=== PATIENT | female | born 1970 | race Caucasian/White ===

== ENCOUNTER → 2017-04-08 | Outpatient (CLI) | payer OTHER ==
[~2017-04-08] MED LIST: ALPRAZOLAM PO; Z.0.BENTYL20 MG PO; Z.0.CIPROFLOXACIN500 PO
--- NOTE | 2017-04-08 15:32 | Diagnostic Imaging Report ---
PROCEDURE: Frontal and lateral views of the chest. COMPARISON: None. INDICATIONS: HISTORY OF CANCER FINDINGS: Lines/tubes: None. Lungs: The lungs are well inflated. Mild bilateral bronchial cuffing. There is no evidence of pneumonia or pulmonary edema. Pleura: There is no pleural effusion or pneumothorax. Heart and mediastinum: The heart and the mediastinum are normal. Bones: No acute bony abnormality. Right upper quadrant cholecystectomy clips. IMPRESSION: No acute cardiopulmonary disease. Dictated by: Abner Kaufman M.D. on 04/08/2017 at 15:40 Electronically approved by: Abner Kaufman M.D. on 04/08/2017 at 15:40
--- NOTE | 2017-04-08 16:07 | Diagnostic Imaging Report ---
PROCEDURE:US RETROPERITONEAL ( KIDNEY ). COMPARISON:Renal ultrasound 04/09/2016. INDICATIONS:Malignant Neoplasm Of Kidney TECHNIQUE: Yarbrough-scale and color sonographic images of the bilateral kidneys and bladder where obtained in transverse and longitudinal planes. FINDINGS: RIGHT KIDNEY: Right nephrectomy. LEFT KIDNEY: 13.2 x 5.0 x 6.2 cm, cortex 2.0 cm Cysts: None Solid masses: None Stones: None Hydronephrosis: None Echogenicity: Normal Bladder: Partially decompressed. CONCLUSION: 1. Right nephrectomy. 2. Normal left kidney. Dictated by: Abner Kaufman M.D. on 04/08/2017 at 16:15 Electronically approved by: Abner Kaufman M.D. on 04/08/2017 at 16:15
== END ==
LOC: US 14:51
PROVIDERS: ATTEND Urology
DX: C64.9 Malignant neoplasm of unspecified kidney, except renal pelvis (principal)
CPT/HCPCS: 71020; 76770

== ENCOUNTER → 2017-04-28 | Outpatient (CLI) | payer OTHER | LOC: MAMMO 14:54 | PROVIDERS: ATTEND Internal Medicine | DX: Z12.31 Encounter for screening mammogram for malignant neoplasm of breast (principal) | CPT/HCPCS: G0202 ==

== ENCOUNTER → 2017-11-27 | Outpatient (CLI) | payer OTHER ==
--- NOTE | 2017-11-27 17:55 | Diagnostic Imaging Report ---
EXAM: Renal Ultrasound INDICATION: \S\MALIGNANT OF UNSPEC'D KIDNEY COMPARISON: Renal ultrasound 04/08/[address] abdomen and pelvis 02/24/2014 TECHNIQUE: Transverse and longitudinal images of the kidneys and bladder were obtained. FINDINGS: Right Kidney: Surgically absent. Left Kidney: Length: 13.7 cm Appearance: Normal echogenicity. Collecting system: No hydronephrosis Stones: None Cyst/Mass: None Bladder: Normal IMPRESSION: Right nephrectomy. Unremarkable left kidney. Signed by: Dr. Doretha Montilla M.D. on 11/27/2017 4:19 PM
--- NOTE | 2017-11-27 17:55 | Diagnostic Imaging Report ---
EXAMINATION: CHEST 2 VIEWS INDICATION: \[id number] \S\[id number] \S\Malignant neoplasm of unspecified kidney, except renal COMPARISON: Chest radiograph 04/08/2017 FINDINGS: PA and lateral views TUBES and LINES: None. LUNGS: Lungs are well inflated. Lungs are clear. There is no evidence of pneumonia or pulmonary edema. PLEURA: No pleural effusion or pneumothorax. HEART AND MEDIASTINUM: The cardiomediastinal silhouette is unremarkable. BONES AND SOFT TISSUES: No acute osseous lesion. Soft tissues are unremarkable. UPPER ABDOMEN: No free air under the diaphragm. Right upper quadrant cholecystectomy clips. IMPRESSION: No acute thoracic abnormality. Signed by: Dr. Doretha Montilla M.D. on 11/27/2017 4:23 PM
== END ==
LOC: US 14:49
PROVIDERS: ATTEND Urology
DX: C64.9 Malignant neoplasm of unspecified kidney, except renal pelvis (principal)
CPT/HCPCS: 71046; 76770

== ENCOUNTER → 2018-06-17 | Outpatient (CLI) | payer OTHER ==
--- NOTE | 2018-06-17 16:13 | Diagnostic Imaging Report ---
EXAM: Renal Ultrasound INDICATION: Malignant neoplasm of the kidney, status post right nephrectomy. COMPARISON: Renal ultrasound 11/27/2017. TECHNIQUE: Transverse and longitudinal images of the kidneys and bladder were obtained. FINDINGS: Right Kidney: Status post nephrectomy. No evidence of mass within the nephrectomy bed. Left Kidney: Length: 13.8 cm Appearance: Normal echogenicity. Collecting system: No hydronephrosis Stones: None Cyst/Mass: None Bladder: Partially decompressed. Left ureteral jet is present. IMPRESSION: Status post right nephrectomy. Unremarkable left kidney. Signed by: Dr. Yosvany Polanco MD on 06/17/2018 4:09 PM
--- NOTE | 2018-06-17 16:44 | Diagnostic Imaging Report ---
EXAMINATION: CHEST 2 VIEWS INDICATION: Renal malignancy. COMPARISON: Chest radiograph 11/27/2017. FINDINGS: TUBES and LINES: None. LUNGS: Lungs are well inflated. Lungs are clear. There is no evidence of pneumonia or pulmonary edema. PLEURA: No pleural effusion or pneumothorax. HEART AND MEDIASTINUM: The cardiomediastinal silhouette is unremarkable. BONES AND SOFT TISSUES: No acute osseous lesion. Soft tissues are unremarkable. UPPER ABDOMEN: No free air under the diaphragm. Cholecystectomy clips are present. IMPRESSION: No acute radiographic abnormality. Signed by: Dr. Yosvany Polanco MD on 06/17/2018 4:40 PM
== END ==
LOC: US 15:18
PROVIDERS: ATTEND Urology
DX: C64.9 Malignant neoplasm of unspecified kidney, except renal pelvis (principal)
CPT/HCPCS: 71046; 76770

== ENCOUNTER → 2019-09-09 | Outpatient (CLI) | payer OTHER ==
[~2019-09-09] MED LIST changes: +ASPIR-LOW81 MG PO; +EFFEXOR XR75 MG PO; +GEMFIBROZIL PO; +LISINOPRIL10 MG PO; +NIACIN100 MG PO; +OMEGA 3 1,0001 EACH PO
--- NOTE | 2019-09-09 16:19 | Diagnostic Imaging Report ---
X-ray chest PA and lateral Comparison: 06/17/2018 History: Malignant neoplasm of the left kidney. Hysterectomy. Findings: Central airways unremarkable. Heart size normal. No pleural effusion. No pneumothorax. Other mediastinal silhouettes unremarkable. No focal lung disease. No lung nodules. Visualized skeletal structures unremarkable. Surgical roman in the upper abdomen seen only on the lateral view. Impression: No acute cardiopulmonary disease. Signed by: Celso Cummings MD on 09/09/2019 4:16 PM
--- NOTE | 2019-09-09 16:27 | Diagnostic Imaging Report ---
Renal ultrasound Comparison: 11/27/2017 Clinical History: Status post right nephrectomy. Technique: Sonographic evaluation of the kidneys was performed. Multiple images were submitted for interpretation, using a low-frequency curved transducer. Right kidney: There is no solid mass or fluid collection in the right renal bed. Left kidney: The kidney measures 13.8 x 4.9 x 6.1 c. The cortical echogenicity is within normal limits. The cortex measures 1.9 cm. There is no evidence of a focal mass. There is no evidence of hydronephrosis. There is no evidence of a shadowing stone. There is no evidence of a cyst. There is no evidence of a perinephric fluid collection. Flow is visualized to the left kidney. Survey images of the bladder demonstrate no abnormality. Impression: Status post right nephrectomy with no visible mass or fluid collection in the right renal bed. Unremarkable left kidney. Signed by: Celso Cummings MD on 09/09/2019 4:23 PM
== END ==
LOC: US 14:57
PROVIDERS: ATTEND Urology
DX: C64.2 Malignant neoplasm of left kidney, except renal pelvis (principal); C64.1 Malignant neoplasm of right kidney, except renal pelvis
CPT/HCPCS: 71046; 76770

== ENCOUNTER → 2020-01-06 | Outpatient (CLI) | payer OTHER | LOC: MAMMO 14:43 | PROVIDERS: ATTEND Internal Medicine | DX: Z12.31 Encounter for screening mammogram for malignant neoplasm of breast (principal) | CPT/HCPCS: 77067 ==

== ENCOUNTER → 2020-03-26 | Outpatient (CLI) | payer OTHER | LOC: US 14:49 | PROVIDERS: ATTEND Urology | DX: C64.1 Malignant neoplasm of right kidney, except renal pelvis (principal); C64.2 Malignant neoplasm of left kidney, except renal pelvis | CPT/HCPCS: 71046; 76770 ==

== ENCOUNTER → 2020-08-06 | Outpatient (CLI) | payer OTHER | LOC: US 14:46 | PROVIDERS: ATTEND Urology | DX: C64.2 Malignant neoplasm of left kidney, except renal pelvis (principal); C64.1 Malignant neoplasm of right kidney, except renal pelvis | CPT/HCPCS: 71046; 76770 ==

== ENCOUNTER → 2020-08-20 | Outpatient (CLI) | payer OTHER | LOC: MRI 14:46 | PROVIDERS: ATTEND Registered Nurse | DX: M16.12 Unilateral primary osteoarthritis, left hip (principal); M46.1 Sacroiliitis, not elsewhere classified | CPT/HCPCS: 72195 ==

== ENCOUNTER → 2021-04-01 | Outpatient (CLI) | payer OTHER | LOC: MAMMO 13:42 | PROVIDERS: ATTEND Internal Medicine | DX: Z12.31 Encounter for screening mammogram for malignant neoplasm of breast (principal); C64.1 Malignant neoplasm of right kidney, except renal pelvis; C64.2 Malignant neoplasm of left kidney, except renal pelvis | CPT/HCPCS: 71046; 76770; 77067 ==

== ENCOUNTER → 2022-08-22 | Outpatient (CLI) | payer OTHER | LOC: US 15:21 | PROVIDERS: ATTEND Internal Medicine Nephrology | DX: N18.2 Chronic kidney disease, stage 2 (mild) (principal); R80.9 Proteinuria, unspecified | CPT/HCPCS: 76770 ==